=== PATIENT | male | born 1950 | race Caucasian/White ===

== ENCOUNTER 2019-12-30 09:16 | Emergency (ER) | payer OTHER ==
[~2019-12-30] VITALS: Ht 188 cm; Wt 90.7 kg
[2019-12-30 10:02] LABS: BASOPHILS ABSOLUTE AUTO 0.06 K/mm3 (0.00-0.23); BASOPHILS PERCENT AUTO 1 % (0-2); EOSINOPHILS ABSOLUTE AUTO 0.35 K/mm3 (0.00-0.68); EOSINOPHILS PERCENT AUTO 6 % (0-6); Hematocrit 38.9 % (37.0-53.0); Hemoglobin 13.3 g/dL (13.5-17.5); IMMATURE GRAN ABSOLUTE AUTO 0.02 K/mm3 (0.00-0.10); IMMATURE GRAN PERCENT AUTO 0 % (0-1); LYMPHOCYTES ABSOLUTE AUTO 1.76 K/mm3 (0.84-5.20); LYMPHOCYTES PERCENT AUTO 29 % (21-46); MONOCYTES ABSOLUTE AUTO 0.48 K/mm3 (0.16-1.47); MONOCYTES PERCENT AUTO 8 % (4-13); Mean Corpuscular HGB 30.9 pg (26.0-34.0); Mean Corpuscular HGB Conc 34.2 g/dL (31.5-36.5); Mean Corpuscular Volume 91 fL (80-100); Mean Platelet Volume 9.9 fL (9.1-12.4); NEUTROPHILS ABSOLUTE AUTO 3.39 K/mm3 (1.96-9.15); NEUTROPHILS PERCENT AUTO 56 % (41-73); Platelet Count 204 K/mm3 (150-400); RDW Coefficient Variation 12.1 % (11.7-14.2); RDW Standard Deviation 39.5 fL (35.1-46.3); White Blood Cell Count 6.06 K/mm3 (4.00-11.30)
[2019-12-30 10:21] LABS: Alanine Aminotransfer (ALT/SGP 29 U/L (12-78); Albumin, Blood 3.7 g/dL (3.4-5.0); Albumin/Globulin Ratio 1.1 (0.8-1.8); Alk Phos 91 U/L (50-136); Anion Gap 7 mmol/L (6-16); Aspartate Aminotrans (AST/SGOT 19 U/L (12-37); Bilirubin, Total 0.3 mg/dL (0.1-1.0); Blood Urea Nitrogen 14 mg/dL (8-24); Bun/Creatinine Ratio 15.4 (12.0-20.0); CO2, Blood 26 mmol/L (21-32); Calcium, Blood 9.2 mg/dL (8.5-10.1); Chloride, Blood 107 mmol/L (98-108); Creatinine, Blood 0.91 mg/dL (0.60-1.20); Globulin, Blood 3.5 g/dL (2.2-4.0); Glomerular Filtration Rate >60 (60-); Glucose, Blood 111 mg/dL (70-99); Potassium, Blood 3.8 mmol/L (3.5-5.5); Sodium, Blood 140 mmol/L (136-145); Total Protein, Blood 7.2 g/dL (6.4-8.2); Troponin I <0.015 ng/mL (0.000-0.040)
[2019-12-30 12:57] LABS: U Amphetamine Screen Not Detected; U Barbituate Screen Not Detected; U Benzodiazapine Screen Not Detected; U Buprenorphine Screen Not Detected; U Cannabinoids Screen Not Detected; U Cocaine Screen Not Detected; U Methadone Screen Not Detected; U Methamphetamine Screen Not Detected; U Opiates Screen Not Detected; U Oxycodone Screen DETECTED; U Phencyclidine Screen Not Detected; U Propoxyphene Screen Not Detected
[2019-12-30] MEDS ORDERED: Ativan1 MG PO (13:26)
== END 2019-12-30 13:35 | disposition home or self-care (01) ==
LOC: ER 09:16
PROVIDERS: Emergency Medicine; Physician Assistant
DX: R06.00 Dyspnea, unspecified (principal); R07.0 Pain in throat; F41.0 Panic disorder [episodic paroxysmal anxiety]; I10 Essential (primary) hypertension; I25.2 Old myocardial infarction; I25.810 Atherosclerosis of coronary artery bypass graft(s) without angina pectoris; Z87.891 Personal history of nicotine dependence; Z88.8 Allergy status to other drugs, medicaments and biological substances
CPT/HCPCS: 36415; 71046; 80053; 84484; 85025; 93005; 93010; 96361; 96374; 96376; 99284-25; J2060; J7030

== ENCOUNTER 2020-06-17 23:32 | Observation (INO) | payer OTHER, MEDICARE ==
[~2020-06-17] VITALS: Ht 188 cm; Wt 98.1 kg
[~2020-06-17 23:32] MED LIST: Ativan1 MG PO
[2020-06-18 00:03] LABS: BASOPHILS ABSOLUTE AUTO 0.04 K/mm3 (0.00-0.23); BASOPHILS PERCENT AUTO 1 % (0-2); EOSINOPHILS ABSOLUTE AUTO 0.24 K/mm3 (0.00-0.68); EOSINOPHILS PERCENT AUTO 4 % (0-6); Hematocrit 43.6 % (37.0-53.0); IMMATURE GRAN ABSOLUTE AUTO 0.03 K/mm3 (0.00-0.10); IMMATURE GRAN PERCENT AUTO 1 % (0-1); LYMPHOCYTES ABSOLUTE AUTO 2.71 K/mm3 (0.84-5.20); LYMPHOCYTES PERCENT AUTO 45 % (21-46); MONOCYTES PERCENT AUTO 10 % (4-13); Mean Corpuscular HGB 27.9 pg (26.0-34.0); Mean Corpuscular HGB Conc 32.1 g/dL (31.5-36.5); Mean Corpuscular Volume 87 fL (80-100); Mean Platelet Volume 9.4 fL (9.1-12.4); NEUTROPHILS ABSOLUTE AUTO 2.47 K/mm3 (1.96-9.15); NEUTROPHILS PERCENT AUTO 41 % (41-73); Platelet Count 217 K/mm3 (150-400); RDW Coefficient Variation 12.5 % (11.7-14.2); RDW Standard Deviation 39.4 fL (35.1-46.3); Red Blood Cell Count 5.02 M/mm3 (4.30-5.90); White Blood Cell Count 6.09 K/mm3 (4.00-11.30)
[2020-06-18 00:19] LABS: Alanine Aminotransfer (ALT/SGP 24 U/L (12-78); Albumin, Blood 3.6 g/dL (3.4-5.0); Albumin/Globulin Ratio 0.9 (0.8-1.8); Alk Phos 106 U/L (50-136); Anion Gap 6 mmol/L (6-16); Aspartate Aminotrans (AST/SGOT 12 U/L (12-37); Bilirubin, Total 0.3 mg/dL (0.1-1.0); Blood Urea Nitrogen 15 mg/dL (8-24); Bun/Creatinine Ratio 14.4 (12.0-20.0); CO2, Blood 29 mmol/L (21-32); Calcium, Blood 9.1 mg/dL (8.5-10.1); Chloride, Blood 107 mmol/L (98-108); Creatinine, Blood 1.04 mg/dL (0.60-1.20); Glomerular Filtration Rate >60 (60-); Glucose, Blood 95 mg/dL (70-99); International Normalized Ratio 0.96; Potassium, Blood 3.4 mmol/L (3.5-5.5); Prothrombin Time Results 10.3 Sec (9.7-11.5); Sodium, Blood 142 mmol/L (136-145); Total Protein, Blood 7.6 g/dL (6.4-8.2); Troponin I <0.015 ng/mL (0.000-0.040)
[2020-06-18] MEDS ORDERED: OXYC5 PO (01:08)
[2020-06-18] MEDS ORDERED: Aspir 8181 MG PO (01:47)
[2020-06-18] MEDS ORDERED: ACET325 PO (01:47)
[2020-06-18] MEDS ORDERED: Bisoprolol Fumar5 MG PO (01:48)
[2020-06-18] MEDS ORDERED: ATOR80 PO (01:48)
[2020-06-18] MEDS ORDERED: ATEN50 PO (01:48)
[2020-06-18] MEDS ORDERED: CAND4 PO (01:49)
[2020-06-18] MEDS ORDERED: CHLO25B PO (01:50)
[2020-06-18] MEDS ORDERED: CLOP75 PO (01:50)
[2020-06-18] MEDS ORDERED: FOLI1 PO (01:51)
[2020-06-18] MEDS ORDERED: AIMOVIG AU140 MG/1 M SQ (01:51)
[2020-06-18] MEDS ORDERED: Ativan1 MG PO (01:53)
[2020-06-18] MEDS ORDERED: HYDHCL25 PO (01:53)
[2020-06-18] MEDS ORDERED: NARCAN4 M1 (01:54)
[2020-06-18] MEDS ORDERED: OMEP20ER PO (01:58)
--- NOTE | 2020-06-18 03:24 | NUR ---
BOOM IS BEING ADMITTED TO MEDICAL FLOOR FOR CHEST PAIN THAT STARTED AN HOUR BEFORE ARRIVING TO THE ED. HE RECEIVED NITRO DOWN STAIRS WHICH HELPED TO RESOLVE THE PAIN. ARRIVED VIA GURNEY, WAS ABLE TO TRANSFER SELF TO BED. AOX3, INDEPENDENT. RECENT TN IN OCTOBER STENTS WERE PLACED. HE WAS AFRAID IT WAS THE SAME THING. PAIN WAS MID STERNUM GOING UP THE RIGHT SIDE OF NECK AROUND EAR TO JAW LINE. CURRENTLY HE IS DOING OK. TELE PLACED, RUNNING SINUS WITH 1ST DEGREE BLOCK. LUNGS CLEAR, DOES GET SOB WHEN HE HAS PANIC ATTACKS ONLY. DENIES ANY OTHER ISSUES, REST OF ASSESSMENT IS BEINGN. ADMINISTERED LOVENOX, FLU VACCINE, AND POTASSIUM. DOES ASK ABOUT HIS MEDS AND IF THEY WILL BE ORDERED. WILL SEE IF MD PUTS IN ORDERS. WATER GIVEN, AND SNACK. WILL MONITOR. CALL LIGHT IN REACH.
--- NOTE | 2020-06-18 05:11 | NUR ---
SHIFT SUMMARY: AOX3, INDEPENDENT IN THE ROOM. WAS ADMITTED LAST NIGHT FOR CHEST PAIN, WHICH WAS RESOLVED BY THE TIME HE ARRIVED TO ROOM. STATES PAIN WAS MIDSTERNUM THAT RADIATED TO RIGHT EAR DOWN TO JAW LINE. NITRO RESOLVED IT FIRST DOSE. VS WNL, TELE RUNNNING SINUS WITH 1ST DEGREE BLOCK. RECENT CA IN OCTOBER WITH STENT PLACEMENT. NO EDEMA. LUNGS CLEAR. GOOD APPETITE. SLEPT WELL REST OF NIGHT. NO OTHER CHANGES TO REPORT, CALL LIGHT IN REACH.
[2020-06-18] MEDS ORDERED: CENTRUM SILVER1 EAC2 PO (06:09)
[2020-06-18] MEDS ORDERED: VITAMIN D325 MC3 PO (06:09)
[2020-06-18] MEDS ORDERED: POTA10T PO (06:11)
[2020-06-18] MEDS ORDERED: TAMS.4ER PO (06:11)
[2020-06-18 14:38] LABS: Potassium, Blood 4.4 mmol/L (3.5-5.5); Troponin I <0.015 ng/mL (0.000-0.040)
[2020-06-18] MEDS ORDERED: Isosorbide Mono30 MG PO (15:58)
--- NOTE | 2020-06-18 16:13 | NUR ---
DISCHARGE HOME: PT ESCORTED VIA W/C WITH DISCHARGE VOLUNTEER AT 1614. PIV REMOVED, EDUCATION PROVIDED, AND BELONGINGS SENT WITH PT. PT STABLE AT TIME OF D/C, NO COMPLAINTS OF CHEST PAIN THIS SHIFT.
== END 2020-06-18 16:13 | disposition home or self-care (01) ==
LOC: ER 23:32 → MEDS 23:33 → SURS 06-18 02:32 → MEDS 06-18 02:49
PROVIDERS: Emergency Medicine; Internal Medicine; ADMIT Internal Medicine
DX: R07.9 Chest pain, unspecified (principal); E87.6 Hypokalemia; I25.10 Atherosclerotic heart disease of native coronary artery without angina pectoris; I10 Essential (primary) hypertension; I25.2 Old myocardial infarction; E78.5 Hyperlipidemia, unspecified; F41.9 Anxiety disorder, unspecified; G47.33 Obstructive sleep apnea (adult) (pediatric); G89.29 Other chronic pain; M54.9 Dorsalgia, unspecified; Z88.8 Allergy status to other drugs, medicaments and biological substances; Z95.1 Presence of aortocoronary bypass graft; Z95.5 Presence of coronary angioplasty implant and graft; Z87.891 Personal history of nicotine dependence; Z79.82 Long term (current) use of aspirin; Z79.02 Long term (current) use of antithrombotics/antiplatelets; Z79.899 Other long term (current) drug therapy; Z23 Encounter for immunization
CPT/HCPCS: 36415; 71045; 80053; 83690; 83880; 84132; 84484; 85025; 85610; 93005; 93010; 96372; 99285-25; A9270; A9270-GY; G0008; G0378; J1650; Q2038

== ENCOUNTER 2020-11-16 16:24 | Emergency (ER) | payer OTHER ==
[~2020-11-16] VITALS: Ht 188 cm; Wt 99.8 kg
[~2020-11-16 16:24] MED LIST changes: +ACET325 PO; +AIMOVIG AU140 MG/1 M SQ; +ATEN50 PO; +ATOR80 PO; +Aspir 8181 MG PO; +Bisoprolol Fumar5 MG PO; +CAND4 PO; +CENTRUM SILVER1 EAC2 PO; +CHLO25B PO; +CLOP75 PO; +FOLI1 PO; +HYDHCL25 PO; +Isosorbide Mono30 MG PO; +NARCAN4 M1; +OMEP20ER PO; +OXYC5 PO; +POTA10T PO; +TAMS.4ER PO; +VITAMIN D325 MC3 PO
[2020-11-16 17:24] LABS: BASOPHILS ABSOLUTE AUTO 0.06 K/mm3 (0.00-0.23); BASOPHILS PERCENT AUTO 1 % (0-2); EOSINOPHILS ABSOLUTE AUTO 0.39 K/mm3 (0.00-0.68); EOSINOPHILS PERCENT AUTO 8 % (0-6); Hematocrit 39.9 % (37.0-53.0); Hemoglobin 13.8 g/dL (13.5-17.5); IMMATURE GRAN ABSOLUTE AUTO 0.01 K/mm3 (0.00-0.10); IMMATURE GRAN PERCENT AUTO 0 % (0-1); LYMPHOCYTES ABSOLUTE AUTO 1.67 K/mm3 (0.84-5.20); LYMPHOCYTES PERCENT AUTO 32 % (21-46); MONOCYTES ABSOLUTE AUTO 0.64 K/mm3 (0.16-1.47); MONOCYTES PERCENT AUTO 12 % (4-13); Mean Corpuscular HGB 30.1 pg (26.0-34.0); Mean Corpuscular HGB Conc 34.6 g/dL (31.5-36.5); Mean Corpuscular Volume 87 fL (80-100); Mean Platelet Volume 10.3 fL (9.1-12.4); NEUTROPHILS ABSOLUTE AUTO 2.42 K/mm3 (1.96-9.15); NEUTROPHILS PERCENT AUTO 47 % (41-73); Platelet Count 182 K/mm3 (150-400); RDW Coefficient Variation 12.1 % (11.7-14.2); RDW Standard Deviation 38.7 fL (35.1-46.3); Red Blood Cell Count 4.59 M/mm3 (4.30-5.90); White Blood Cell Count 5.19 K/mm3 (4.00-11.30)
[2020-11-16 17:55] LABS: Alanine Aminotransfer (ALT/SGP 27 U/L (12-78); Albumin, Blood 3.3 g/dL (3.4-5.0); Albumin/Globulin Ratio 0.9 (0.8-1.8); Alk Phos 80 U/L (50-136); Anion Gap 6 mmol/L (6-16); Aspartate Aminotrans (AST/SGOT 12 U/L (12-37); Bilirubin, Total 0.6 mg/dL (0.1-1.0); Blood Urea Nitrogen 25 mg/dL (8-24); Bun/Creatinine Ratio 21.4 (12.0-20.0); CO2, Blood 28 mmol/L (21-32); Calcium, Blood 8.8 mg/dL (8.5-10.1); Chloride, Blood 106 mmol/L (98-108); Creatinine, Blood 1.17 mg/dL (0.60-1.20); Globulin, Blood 3.8 g/dL (2.2-4.0); Glomerular Filtration Rate >60 (60-); Glucose, Blood 97 mg/dL (70-99); Potassium, Blood 3.4 mmol/L (3.5-5.5); Sodium, Blood 140 mmol/L (136-145); Total Protein, Blood 7.1 g/dL (6.4-8.2); Troponin I <0.015 ng/mL (0.000-0.040)
== END 2020-11-16 18:05 | disposition left against medical advice (07) ==
LOC: ER 16:24
PROVIDERS: Emergency Medicine
DX: R07.9 Chest pain, unspecified (principal); R94.31 Abnormal electrocardiogram [ECG] [EKG]; I10 Essential (primary) hypertension; I25.2 Old myocardial infarction; Z79.899 Other long term (current) drug therapy; Z88.8 Allergy status to other drugs, medicaments and biological substances; Z87.891 Personal history of nicotine dependence
CPT/HCPCS: 71045; 80053; 83735; 84484; 85025; 93005; 93010; 99285-25; A9270

== ENCOUNTER 2021-06-17 08:44 | Inpatient (IN) | payer OTHER ==
[~2021-06-17] VITALS: Ht 188 cm; Wt 93.6 kg
[~2021-06-17 08:44] MED LIST changes: -CAND4 PO; +CANDESARTAN CILE4 MG PO
[2021-06-17] MEDS ORDERED: MAGNESIUM OXID500 MG PO (09:02)
[2021-06-17] MEDS ORDERED: PANT40 PO (09:02)
[2021-06-17] MEDS ORDERED: PROM25 PO (09:02)
[2021-06-17] MEDS ORDERED: Seroquel Xr50 MG PO (09:03)
--- NOTE | 2021-06-17 15:06 | NUR ---
PT ADMITTED TO ICU FROM [facility] POST ANGIOGRAM W STENT PLACEMENT AT 1300. PT ARRIVED WITH HC RN'S AND DR LIRIANO. ON ADMIT PT C/O RIGHT SIDED CHEST PAIN "BURNING" 8/10, WITHOUT PRESSURE, NOT WORSE W DEEP BREATH. PARTS TECHNICIAN STATES HE WAS HAVING SAME SYMPTOMS IN PARTS TECHNICIAN. PT HAS NTG GTT INFUSING FOR CHEST PAIN AT 10MCG. PERCLOSE CLOSURE DEVICE TO RIGHT GROIN WITH FEMSTOP AT 70MMHG OVER RIGHT GROIN. SM AMT OF BLOOD TO DRSG, BLOOD CLEANED FROM RIGHT GROIN LEFT FROM PROCEDURE. BLE COOL AND PALE BUT WITH 2+ PT/DP PULSES. GROIN SITE AND PULSES CHECKED Q15 X8, AND NOW Q30 AND PRN. FEMSTOP DECREASED TO 40MMHG AT [address] LIRIANO AND INCREASED AGAIN TO 50 FOR OOZING. PT C/O NAUSEA ON ADMIT. ZOFRAN AND PHENERGAN GIVEN. PT BECAME SEVERLY ANXIOUS AND RESTLESS AFTER PHENERGAN. PT STATED "IF YOU DONT FIX THIS NOW I'M GETTING UP AND WALKING OUT OF HERE, YOU HAVE 2 MINUTES TO FIX THIS". DR LIRIANO CALLED, ATIVAN 2MG ORDERED AND GIVEN. WITHIN MINS PT CALM AND DROWSY. PT NOW SLEEPING W MILD CONFUSION AND CONFUSED SPEECH, REMAINS CALM. PT DID KICK RIGHT LEG OUT BECAUSE HE HAD TO VOID. RIGHT GROIN OOZED AFTER THIS. FEM STOP INCREASED FROM 40MMHG TO 50MMHG, AREA REMAINS SOFT WITH HEMATOMA. DR LIRIANO CAME AND CJECKED ON PT AFTER ANXIETY, EKG COMPLETED AND SHOWN TO DR LIRIANO. BONSAI TENDER AT BEDSIDE NOW.
[2021-06-17 15:39] LABS: Anion Gap 9 mmol/L (6-16); Blood Urea Nitrogen 16 mg/dL (8-24); Bun/Creatinine Ratio 13.8 (12.0-20.0); CO2, Blood 23 mmol/L (21-32); Calcium, Blood 8.2 mg/dL (8.5-10.1); Chloride, Blood 107 mmol/L (98-108); Creatinine, Blood 1.16 mg/dL (0.60-1.20); Glomerular Filtration Rate >60 (60-); Glucose, Blood 133 mg/dL (70-99); Potassium, Blood 3.2 mmol/L (3.5-5.5); Sodium, Blood 139 mmol/L (136-145); Troponin I 0.417 ng/mL (0.000-0.040)
--- NOTE | 2021-06-17 16:11 | NUR ---
AT 1545 PT DENIED CHEST PAIN BUT C/O ALMANZAR AND LOWER BACK PAIN 7/10 (CHRONIC BACK PAIN). NGT GTT STOPPED. FENT 50MCG GIVEN FOR PAIN. PT W RETENTION, 16F BORRERO CATH PLACED W/O DIFFICULTY, URINE SENT. DR LIRIANO AT BEDSIDE, FULL UPDATE GIVEN, GROIN ASSESSED. NO CHANGE TO GROIN, NO FURTHER OOZING, AREA SOFT, R PULSES 2+ TO PT/DP. FEM STOP AT 50MMHG, OKAY PER DR LIRIANO.
[2021-06-17 16:17] LABS: Source, Urine Catheter
[2021-06-17 16:23] LABS: Appearance, Urine Clear (Clear); Bilirubin, Urine Neg (Neg); Blood, Urine Neg (Neg); Glucose Qualitative, Urine Neg (Neg); Ketones, Urine 2+ (Neg); Leukocyte Esterase, Urine Neg (Neg); Nitrite, Urine Neg (Neg); Protein, Urine 1+ (Neg); Specific Gravity, Urine 1.005 (1.003-1.022); Urobilinogen, Urine NORM (Normal); pH, Urine 6.5 (5.0-8.0)
[2021-06-17 16:43] LABS: Color, Urine Yellow (P-Yellow)
--- NOTE | 2021-06-17 17:49 | NUR ---
R GROIN REMAINS STABLE. HOB AT 30 DEGREES FOR MEAL. NEW INVERTED T WAVE IN LEAD ll NOTED. EKG COMPLETED AND SENT TO DR LIRIANO, NO NEW ORDERS, PT REMAINS CHEST PAIN FREE. C/O ALMANZAR 02/13.
--- NOTE | 2021-06-17 18:45 | NUR ---
AT 1700 FEMSTOP DECREASED TO 40mmHG. FEM STOP REMOVED AT 1830 AFTER PT'S DINNER COMPLETE. DRSG CHANGED, NEW DSTAT PLACED. NO OOZING NOTED TO PERCLOSE SITE. AREA REMAINS SOFT W/O HEMATOMA OR BLEEDING. FENT GIVEN FOR ALMANZAR, NO OTHER COMPLAINTS. NTG REMAINS OFF, K+ 40MEG PO GIVEN. PT SLEEPING NOW.
--- NOTE | 2021-06-18 00:07 | NUR ---
ASSUMED CARE NOTE PT IS AOX4, PLEASANT. SR RATE 60-70. SBP 120-150. ROOM AIR, LUNGS CLEAR. BS+, ABDOMEN SOFT, NON TENDER. NO NAUSEA. BORRERO, ADEQUATE CLEAR/YELLOW OUTPUT. SKIN INTACT. RIGHT FEMORAL GROIN SITE IS CLEAN, DRY AND INTACT. NO OOZING. PT SAT UP AT 2020 PER PROTOCOL. PEDAL PULSES 2+, CAP REFILL <3s.
--- NOTE | 2021-06-18 00:13 | NUR ---
SIGNIFICANT EVENT PT HAD A 24 BEAT RUN OF VTA 0002. BP STABLE AT 135/64. PT SLEEPING WHILE THIS OCCURRED. WILL CONTINUE TO MONITOR.
[2021-06-18 06:04] LABS: BASOPHILS ABSOLUTE AUTO 0.03 K/mm3 (0.00-0.23); BASOPHILS PERCENT AUTO 0 % (0-2); EOSINOPHILS PERCENT AUTO 1 % (0-6); Hematocrit 35.8 % (37.0-53.0); Hemoglobin 12.2 g/dL (13.5-17.5); IMMATURE GRAN ABSOLUTE AUTO 0.03 K/mm3 (0.00-0.10); IMMATURE GRAN PERCENT AUTO 0 % (0-1); LYMPHOCYTES ABSOLUTE AUTO 1.22 K/mm3 (0.84-5.20); LYMPHOCYTES PERCENT AUTO 15 % (21-46); MONOCYTES ABSOLUTE AUTO 0.69 K/mm3 (0.16-1.47); MONOCYTES PERCENT AUTO 9 % (4-13); Mean Corpuscular HGB 30.2 pg (26.0-34.0); Mean Corpuscular HGB Conc 34.1 g/dL (31.5-36.5); Mean Corpuscular Volume 89 fL (80-100); NEUTROPHILS ABSOLUTE AUTO 6.08 K/mm3 (1.96-9.15); NEUTROPHILS PERCENT AUTO 75 % (41-73); Platelet Count 176 K/mm3 (150-400); RDW Coefficient Variation 12.2 % (11.7-14.2); Red Blood Cell Count 4.04 M/mm3 (4.30-5.90); White Blood Cell Count 8.15 K/mm3 (4.00-11.30)
[2021-06-18 06:19] LABS: Anion Gap 6 mmol/L (6-16); Blood Urea Nitrogen 13 mg/dL (8-24); Bun/Creatinine Ratio 13.9 (12.0-20.0); CO2, Blood 26 mmol/L (21-32); Calcium, Blood 8.4 mg/dL (8.5-10.1); Chloride, Blood 109 mmol/L (98-108); Creatinine, Blood 0.93 mg/dL (0.60-1.20); Glomerular Filtration Rate >60 (60-); Glucose, Blood 137 mg/dL (70-99); Potassium, Blood 3.3 mmol/L (3.5-5.5); Sodium, Blood 141 mmol/L (136-145)
--- NOTE | 2021-06-18 09:00 | NUR ---
Care Assumed 0700 A/O X 4, to location, event, following directions, and correct date/year. States CP of 4/10 in the center of the chest, feels like an ache. On RA, SPO2 > 90%, LS clear. NSR, HR 50-60's. BP stable. Right groin site dressing C/D/I, no hematoma, denies pain in the aprea. BT active, able to sit up in bed and eat breakfast. Call light within reach.
--- NOTE | 2021-06-18 10:10 | NUR ---
Ketty Wall- Dr. Burrell Updated Dr. Burrell on current care and vital signs. Pt continues to state chest pain/ache of 4/10. NSR, HR 50'S when sleeping. Provider would like to keep patient in ICU for another day and would like trop rechecked. Rogel to be removed since patient no longer needs it.
--- NOTE | 2021-06-18 15:00 | NUR ---
Recieved call from Dr. Nash Provider updated on current care being providered. No new orders recieved.
--- NOTE | 2021-06-18 17:47 | NUR ---
Provider call - Dr. Burrell Spoke to Dr. Burrell and updated on pt status. Recieved new orders for another Trop in the am. Pt to remain in ICU.
--- NOTE | 2021-06-18 18:37 | NUR ---
Shift Summary A/O X 4. Sitting up in bed, able to ambulate, and states having chest pain /, "more of a ache" patient states. Headache and neck pain 03/16, treated per emar. On RA, HR 60-70's, BP stable. NSR. No other changes t/o shift. Rogel removed at start of shift and pt has voided successfully since. Will report to oncoming shift.
[2021-06-19 05:48] LABS: BASOPHILS ABSOLUTE AUTO 0.04 K/mm3 (0.00-0.23); BASOPHILS PERCENT AUTO 1 % (0-2); EOSINOPHILS ABSOLUTE AUTO 0.24 K/mm3 (0.00-0.68); EOSINOPHILS PERCENT AUTO 3 % (0-6); Hemoglobin 11.5 g/dL (13.5-17.5); IMMATURE GRAN ABSOLUTE AUTO 0.02 K/mm3 (0.00-0.10); IMMATURE GRAN PERCENT AUTO 0 % (0-1); LYMPHOCYTES ABSOLUTE AUTO 1.64 K/mm3 (0.84-5.20); LYMPHOCYTES PERCENT AUTO 23 % (21-46); MONOCYTES ABSOLUTE AUTO 0.65 K/mm3 (0.16-1.47); MONOCYTES PERCENT AUTO 9 % (4-13); Mean Corpuscular HGB 30.5 pg (26.0-34.0); Mean Corpuscular HGB Conc 33.8 g/dL (31.5-36.5); Mean Corpuscular Volume 90 fL (80-100); Mean Platelet Volume 10.2 fL (9.1-12.4); NEUTROPHILS PERCENT AUTO 63 % (41-73); Platelet Count 155 K/mm3 (150-400); RDW Coefficient Variation 12.3 % (11.7-14.2); RDW Standard Deviation 40.5 fL (35.1-46.3); Red Blood Cell Count 3.77 M/mm3 (4.30-5.90); White Blood Cell Count 7.09 K/mm3 (4.00-11.30)
[2021-06-19 06:11] LABS: Anion Gap 5 mmol/L (6-16); Blood Urea Nitrogen 11 mg/dL (8-24); CO2, Blood 28 mmol/L (21-32); Calcium, Blood 8.4 mg/dL (8.5-10.1); Chloride, Blood 107 mmol/L (98-108); Creatinine, Blood 0.92 mg/dL (0.60-1.20); Glomerular Filtration Rate >60 (60-); Glucose, Blood 109 mg/dL (70-99); Potassium, Blood 3.6 mmol/L (3.5-5.5); Sodium, Blood 140 mmol/L (136-145)
--- NOTE | 2021-06-19 08:13 | NUR ---
REPORT RECIEVED FROM POWER SHOVEL MECHANIC RN. RIGHT GROIN SITE LOOKS GOOD, SOME BRUISING AT SITE. DRESSING CDI. PATIENT COMPLAINT OF HEADACHE 10/ WITH NAUSEA. GIVEN 10 MG OXY CODONE. PATIENT UP IN CHAIR FOR BREAKFAST. STEADY ON FEET. ALERT AND ORIENTED. AFEBRILE. SINUS RYTHM HR 78, BP 112/66. PPP. LUNGS ARE CLEAR BUT DIM. ON ROOM AIR. BOWEL TONES +. VOIDS VIA URINAL. NO SKIN ISSUES. 2 PERPHERAL IV SITE IN LAC, FLUSH WELL.
--- NOTE | 2021-06-19 13:41 | NUR ---
PATIENT RECIEVED FROM KNOCKUP WORKER VIA BED. RIGHT GROIN SHEATH PULLED BY THEM AND MANUAL PRESSURE WAS HELD THERE. HIS GROIN SITE LOOKS GOOD, SOFT SUPPLE, SMALL SCATTERED BRUISING. GOOD CAP REFILL TO RIGHT FOOT AND PULSES PER DOPPLER. PATIENT IS WAKING UP FROM SEDATION FROM PROCEDURE. HE IS FORGETFUL AND REPEATS QUESTIONS FREQUENTLY. HE IS CALM AND COOPERATIVE AT THIS TIME. HE KNOWS HE NEEDS TO REMAIN FLAT FOR NEXT 3 HOURS TO KEEP GROIN SITE STABLE. HE IS IN IRREGULAR SR 70-90'S, BP 110-120'S/60-70'S. LUNGS ARE CLEAR/DIM ON ROOM AIR 100% SPO2. BOWEL TONES +. HE IS CURRENTLY ATTEMPTING TO VOID PER URINAL. SKIN IS DRY THIN AND FRAGILE. THERE IS A RIGHT RADIAL WRIST ATTEMPT WITH BAND AIDE. RIGHT GROIN SITE THAT IS CDI OPPSITE. WAITING FOR ORDERS AT THIS TIME. DR RUTHERFORD IS BEING ADDED TO CASE.
[2021-06-19] MEDS ORDERED: TICA90TA PO (15:15)
[2021-06-19] MEDS ORDERED: METO50ER PO (15:16)
--- NOTE | 2021-06-19 15:29 | NUR ---
[id number]: THIS RN ASKED TO HELP WITH PT'S DC PAPERWORK. NOTED THAT NO MEDICATIONS HAVE BEEN PRESCRIBED. TREE WRAPPER INFORMED, MD PADILLA NOTIFIED. MD PADILLA HAS DICTATED TO TREE WRAPPER WHAT MEDICATIONS SHE WOULD LIKE PT TO HAVE. RN ASKED THE MD PADILLA PLEASE SPEAK TO PT HE HAS SOME QUESTIONS REGARDING POC AND DC.
--- NOTE | 2021-06-19 16:35 | NUR ---
AT 1600 PT WAS GIVEN 10 MG PO OXYCODONE. BOTH PERIPHERAL IV SITES DC'D BY RN. DC PAPERWORK GIVEN TO PATIENT AND GONE OVER. PATIENT WAS INFORMED WHEN HIS RIDE ARRIVED HE WOULD BE WALKED OUT TO VEHICLE. UPON DC AT 1635 HE WALKED OUT TO A CAR CLAIMED IT WAS HIS FRIENDS VEHICLE WHEN NURSE ASKED HIM IF HE WAS DRIVING HOME HE SAID HE WAS. HE WAS INFORMED THAT DRIVING WHILE ON OXYCODONDE THAT HE COULD GET A DUI. PATIENT SAID HE DIDN'T CARE AND DROVE OFF. SCHEDULE MAKER ARCHIE WAS NOTIFIED OF SITUATION.
== END 2021-06-19 16:31 | disposition home or self-care (01) | DRG 246 ==
LOC: MHTC 08:44 → ICUW 13:01 → MHTC 13:11 → ICUW 13:12 → ICUE 13:14
PROVIDERS: Internal Medicine Cardiovascular Disease
PROC: 027237Z Dilation of Coronary Artery, Three Arteries with Four or More Drug-eluting Intraluminal Devices, Percutaneous Approach (ICD-10-PCS; principal; 2021-06-17)
PROC: 4A023N7 Measurement of Cardiac Sampling and Pressure, Left Heart, Percutaneous Approach (ICD-10-PCS; 2021-06-17)
PROC: B2181ZZ Fluoroscopy of Left Internal Mammary Bypass Graft using Low Osmolar Contrast (ICD-10-PCS; 2021-06-17)
PROC: B2111ZZ Fluoroscopy of Multiple Coronary Arteries using Low Osmolar Contrast (ICD-10-PCS; 2021-06-17)
DX: I25.10 Atherosclerotic heart disease of native coronary artery without angina pectoris (principal); R07.89 Other chest pain; G47.10 Hypersomnia, unspecified; I10 Essential (primary) hypertension; E78.5 Hyperlipidemia, unspecified; F41.9 Anxiety disorder, unspecified; G43.909 Migraine, unspecified, not intractable, without status migrainosus; M54.50 Low back pain, unspecified; Z95.1 Presence of aortocoronary bypass graft; I25.2 Old myocardial infarction; Z79.02 Long term (current) use of antithrombotics/antiplatelets; Z79.82 Long term (current) use of aspirin; Z79.899 Other long term (current) drug therapy
CPT/HCPCS: 36415; 36416; 51702; 76937; 80048; 84484; 85025; 85347; 92921; 93005; 93010; 93306; 93455; 93571; 99152; 99153; A9270; C1725; C1751; C1760; C1769; C1874; C1887; C1894; C9600; C9604; J1644; J2060; J2250; J2270; J2370; J2405; J2550; J3010; J3246; J7030; J7040; J7050; Q9967